=== PATIENT | female | born 2000 | race Caucasian/White ===

== ENCOUNTER 2022-06-17 17:06 | Emergency (ER) | payer OTHER ==
[~2022-06-17] VITALS: Ht 157.5 cm; Wt 63.6 kg
[2022-06-17 17:16] VITALS: TEMP 98.1
[2022-06-17 18:04] LABS: BASO # 0.1 K/mm3 (0.0-0.2); BASO % 0.6 % (0.0-2.0); EOS # 0.1 K/mm3 (0.0-0.7); EOS % 1.2 % (0.0-4.0); GRAN # 5.7 K/mm3 (1.4-6.5); GRAN % 63.9 % (42.2-75.2); HEMATOCRIT 40.2 % (37.0-47.0); HEMOGLOBIN 14.1 g/dl (12.5-16.0); LYMPH # 2.6 K/mm3 (1.2-3.4); LYMPH % 28.8 % (20.0-51.0); MEAN CELL VOLUME 87 fl (80.0-100.0); MEAN CORPUSCULAR HEMOGLOBIN 31 pg (27-31); MEAN CORPUSCULAR HGB CONC 35 g/dl (33.0-37.0); MEAN PLATELET VOLUME 9.9 fl (7.4-10.4); MONO # 0.5 K/mm3 (0.1-0.6); MONO % 5.3 % (1.7-9.3); PLATELET COUNT 227 K/mm3 (130-400); REDCELL DISTRIBUTION WIDTH-CV 12.8 % (11.5-14.5)
[2022-06-17 18:08] LABS: COLLECTION METHOD CLEAN CATCH
[2022-06-17 18:17] LABS: ALBUMIN 4.6 gm/dL (3.5-5.0); CALCIUM 9.8 mg/dL (8.4-10.2); CREATININE, serum 0.73 mg/dL (0.57-1.11); POTASSIUM 3.9 mmol/L (3.5-4.5); TOTAL PROTEIN 7.7 gm/dL (6.2-8.1)
[2022-06-17 18:21] LABS: MUCOUS Present (NOT PRESENT); SQUAMOUS EPITHELIAL 0-2 /hpf (0-10); URINE BACTERIA None Seen /hpf (NONE SEEN); URINE RBC 0-2 /hpf (0-2)
[2022-06-17 18:22] LABS: PH 5.5 (5.0-8.5); URINE APPEARANCE Clear (CLEAR/HAZY); URINE BLOOD TRACE-LYSED (NEGATIVE); URINE COLOR Yellow (YELLOW); URINE GLUCOSE Negative (NEGATIVE); URINE KETONE Negative (NEGATIVE); URINE NITRATE Negative (NEGATIVE); URINE PROTEIN(semi-quant) Negative (NEGATIVE); URINE UROBILINOGEN 0.2 E.U/dL (0.2-1.0)
[2022-06-17] MEDS ORDERED: ZOFRAN ODT4 MG PO (18:29)
[2022-06-17 18:48] VITALS: BP 112/72; PULSE 76
== END 2022-06-17 18:49 | disposition home or self-care (01) ==
LOC: COL.ER 17:06
PROVIDERS: Nurse Practitioner Primary Care
DX: O21.9 Vomiting of pregnancy, unspecified (principal); Z28.310 Unvaccinated for COVID-19; Z3A.00 Weeks of gestation of pregnancy not specified
CPT/HCPCS: J2405; J7030

== ENCOUNTER 2022-11-21 18:23 | Outpatient (CLI) | payer OTHER ==
[~2022-11-21] VITALS: Ht 157.5 cm; Wt 72.7 kg
[~2022-11-21 18:23] MED LIST: CEPHALEXIN500 M1 PO; NATURE'S BLEND100 M2 PO; ZOFRAN ODT4 MG PO
--- NOTE | 2022-11-21 18:30 | NUR ---
183- PT PRESENTS TO LDR COMPLAINING OF BACK PAIN AND POSSIBLY LEAKING SOME FLUID, AMBULATORY TO ROOM LR6, CHANGED INTO GOWN. 183- EFM X2 APPLIED. PT STATES SHE HAS BEEN HAVING PAIN IN HER BACK ON HER RIGHT SIDE. RATES IT A 6 AND STATES IT IS SHARP. SAYS SHE HAS HAD SOME CONTRACTIONS WELL. PT STATES SHE FEELS LIKE SHE HAS BEEN "WET FOR THE LAST MONTH," BUT EVERY TIME IT IS CHECKED, IT ISN'T AMNIOTIC FLUID. SHE FEELS LIKE THERE IS NO WAY SHE COULD BE "PEEING HERSELF 02/05 LIKE THIS." REASSURED PT WE WOULD TEST FOR RUPTURE OF MEMBRANES. PT ALSO STATES SHE HAS HAD SOME SPOTTING ON AND OFF FOR HER WHOLE , BUT NOT CURRENTLY HAVING ANY. PT HAS PROVIDED A URINE SAMPLE ON ADMISSION. 184- AMNITRACE NEGATIVE WITH NO POOLING OF FLUID, ENTROITUS IS DRY ON EXAM. SVE BY THIS NURSE 0/0/-3 WITH NO POOLING OF FLUID OR BLEEDING NOTED. DISCUSSED THESE FINDINGS WITH PT AND QUESTIONS ANSWERED. 1848- DR CROWE CALLED CHARTED, ORDERS RECEIVED FOR LABOR CHECK, UA, TYLENOL, AND PO HYDRATION.
[2022-11-21 19:00] VITALS: BP 102/65; PULSE 82; TEMP 98
[2022-11-21 19:00] LABS: COLLECTION METHOD CLEAN CATCH
[2022-11-21] MEDS ORDERED: NATURAL IRON65 MG PO (19:13)
[2022-11-21] MEDS ORDERED: COLACE 100100 MG/CAP PO (19:14)
[2022-11-21] MEDS ORDERED: DAILY MULTIPLE1 T18 PO (19:16)
[2022-11-21 19:34] LABS: URINE APPEARANCE Clear (CLEAR/HAZY); URINE COLOR Yellow (YELLOW)
--- NOTE | 2022-11-21 19:35 | NUR ---
1934- NURSE TO BEDSIDE, MONTITORS ADJUSTED. 1936- PT UP TO BATHROOM. 1947- PT BACK ON MONITORS. 1949- SVE BY THIS NURSE, NO CHANGE 0/0/-3. DISCUSSED PLAN OF CARE FOR DISMISSAL AND UA RESULTS. PT QUESTIONS ANSWERED. 1999- PT OFF MONITORS FOR DISMISSAL. 2009- DISMISSAL INSTRUCTIONS GIVEN AND PT VERBALIZES UNDERSTANDING. PT SIGNS PAPERS. PT DISMISSED TO HOME ACCOMPANIED BY SPOUSE AND CHILD.
[2022-11-21 19:36] LABS: PH 6.5 (5.0-8.5); URINE BLOOD Negative (NEGATIVE); URINE GLUCOSE Negative (NEGATIVE); URINE KETONE Negative (NEGATIVE); URINE NITRATE Negative (NEGATIVE); URINE PROTEIN(semi-quant) Negative (NEGATIVE); URINE UROBILINOGEN 0.2 E.U/dL (0.2-1.0)
[2022-11-21 22:29] LABS: SQUAMOUS EPITHELIAL 0-2 /hpf (0-10); URINE BACTERIA None Seen /hpf (NONE SEEN); URINE RBC 0-2 /hpf (0-2)
== END 2022-11-21 20:10 | disposition home or self-care (01) ==
LOC: LDRO 18:23 → LDR 18:23 → LDRO 20:10
PROVIDERS: Obstetrics & Gynecology
DX: O42.913 Preterm premature rupture of membranes, unspecified as to length of time between rupture and onset of labor, third trimester (principal); O99.891 Other specified diseases and conditions complicating pregnancy; M54.9 Dorsalgia, unspecified; Z3A.29 29 weeks gestation of pregnancy
CPT/HCPCS: OP

== ENCOUNTER 2022-12-23 14:54 | Outpatient (CLI) | payer OTHER ==
[~2022-12-23] VITALS: Ht 157.5 cm; Wt 75.0 kg
[~2022-12-23 14:54] MED LIST changes: +COLACE 100100 MG/CAP PO; +DAILY MULTIPLE1 T18 PO; +NATURAL IRON65 MG PO
[2022-12-23] MEDS ORDERED: PRILOSEC 20MG20 MG PO (15:06)
[2022-12-23 15:30] VITALS: BP 113/66; PULSE 90; TEMP 98.8
[2022-12-23 15:57] VITALS: BP 99/54; PULSE 83
== END 2022-12-23 15:55 ==
LOC: LDRO 14:54
DX: Z34.90 Encounter for supervision of normal pregnancy, unspecified, unspecified trimester (principal); Z3A.00 Weeks of gestation of pregnancy not specified

== ENCOUNTER 2022-12-28 12:28 | Outpatient (CLI) | payer OTHER ==
[~2022-12-28] VITALS: Ht 157.5 cm; Wt 73.2 kg
[~2022-12-28 12:28] MED LIST changes: +PRILOSEC 20MG20 MG PO
--- NOTE | 2022-12-28 12:45 | NUR ---
1245 PT ARRIVED ON UNIT WITH COMPLAINT OF DIARRHEA AND PAIN IN SIDE. PT IS NOT HAVING CTX, NO LOF, AND POSITIVE MOVEMENT. PT WAS ABLE TO VOID IN SPECIMEN CUP BUT UNABLE TO PROVIDE STOOL SAMPLE. PT LYING IN BED COMFORTABLY, EFM TRACING CAT 1.
[2022-12-28 13:30] VITALS: BP 107/71; PULSE 94; TEMP 98.1
[2022-12-28 13:36] LABS: COLLECTION METHOD CLEAN CATCH
[2022-12-28 13:41] LABS: BASO % 0.3 % (0.0-2.0); EOS # 0.2 K/mm3 (0.0-0.7); EOS % 1.2 % (0.0-4.0); GRAN # 10.2 K/mm3 (1.4-6.5); GRAN % 79.5 % (42.2-75.2); HEMOGLOBIN 12.1 g/dl (12.5-16.0); LYMPH # 1.8 K/mm3 (1.2-3.4); LYMPH % 13.6 % (20.0-51.0); MEAN CELL VOLUME 88 fl (80.0-100.0); MEAN CORPUSCULAR HEMOGLOBIN 31 pg (27-31); MEAN CORPUSCULAR HGB CONC 35 g/dl (33.0-37.0); MEAN PLATELET VOLUME 10.5 fl (7.4-10.4); MONO # 0.6 K/mm3 (0.1-0.6); MONO % 4.6 % (1.7-9.3); PLATELET COUNT 198 K/mm3 (130-400); RED BLOOD COUNT 3.91 M/mm3 (4.10-5.30); REDCELL DISTRIBUTION WIDTH-CV 13.4 % (11.5-14.5)
[2022-12-28 13:45] LABS: HEMATOCRIT 34.5 % (37.0-47.0)
[2022-12-28 13:46] LABS: URINE APPEARANCE Clear (CLEAR/HAZY); URINE BLOOD Negative (NEGATIVE); URINE COLOR Yellow (YELLOW); URINE GLUCOSE Negative (NEGATIVE); URINE KETONE Negative (NEGATIVE); URINE NITRATE Negative (NEGATIVE); URINE PROTEIN(semi-quant) Negative (NEGATIVE); URINE UROBILINOGEN 0.2 E.U/dL (0.2-1.0)
[2022-12-28 13:47] LABS: MUCOUS Present (NOT PRESENT); SQUAMOUS EPITHELIAL 0-2 /hpf (0-10); URINE BACTERIA Rare /hpf (NONE SEEN); URINE RBC 0-2 /hpf (0-2); URINE WBC 0-2 /hpf (0-2)
[2022-12-28 14:00] VITALS: BP 104/62; PULSE 95; TEMP 98.1
[2022-12-28 14:04] LABS: ALBUMIN 3.3 gm/dL (3.5-5.0); BILIRUBIN,TOTAL 0.7 mg/dL (0.2-1.2); CALCIUM 8.8 mg/dL (8.4-10.2); CREATININE, serum 0.68 mg/dL (0.57-1.11); POTASSIUM 3.6 mmol/L (3.5-4.5); TOTAL PROTEIN 6.4 gm/dL (6.2-8.1)
[2022-12-28 14:30] VITALS: BP 110/66; PULSE 101
[2022-12-28 15:00] VITALS: BP 105/69; PULSE 90
== END 2022-12-28 15:05 | disposition home or self-care (01) ==
LOC: LDRO 12:28
PROVIDERS: Obstetrics & Gynecology
DX: O26.899 Other specified pregnancy related conditions, unspecified trimester (principal); R19.7 Diarrhea, unspecified; Z3A.00 Weeks of gestation of pregnancy not specified
CPT/HCPCS: J7120

== ENCOUNTER 2023-01-27 16:54 | Inpatient (IN) | payer OTHER ==
[2023-01-27] VITALS (20 sets, daily range): BP systolic 101–126; BP diastolic 55–74; PULSE 87–137; TEMP 98–99.1
[~2023-01-27] VITALS: Ht 157.5 cm; Wt 76.8 kg
[2023-01-27 18:04] LABS: BASO # 0.1 K/mm3 (0.0-0.2); BASO % 0.5 % (0.0-2.0); EOS # 0.1 K/mm3 (0.0-0.7); EOS % 0.4 % (0.0-4.0); GRAN # 16.7 K/mm3 (1.4-6.5); GRAN % 84.3 % (42.2-75.2); HEMATOCRIT 35.7 % (37.0-47.0); HEMOGLOBIN 12.2 g/dl (12.5-16.0); LYMPH # 1.8 K/mm3 (1.2-3.4); LYMPH % 9.2 % (20.0-51.0); MEAN CELL VOLUME 86 fl (80.0-100.0); MEAN CORPUSCULAR HEMOGLOBIN 30 pg (27-31); MEAN CORPUSCULAR HGB CONC 34 g/dl (33.0-37.0); MEAN PLATELET VOLUME 10.5 fl (7.4-10.4); PLATELET COUNT 224 K/mm3 (130-400); RED BLOOD COUNT 4.13 M/mm3 (4.10-5.30); REDCELL DISTRIBUTION WIDTH-CV 13.7 % (11.5-14.5)
[2023-01-27] MEDS ORDERED: PRENATAL TABLET PO (18:40)
--- NOTE | 2023-01-27 19:36 | NUR ---
PATIENT CONTRACTION Q 5 MIN APART VERY TEARFUL. 1824 ANEST. HERE FOR EPIDURAL. SITTING UP ON EDGE OF BED.
[2023-01-28] VITALS (9 sets, daily range): BP systolic 90–116; BP diastolic 53–65; PULSE 66–107; TEMP 97.6–98.6
--- NOTE | 2023-01-28 00:32 | NUR ---
PATIENT VERY UNCOMFORTABLE. DOES NOT WANT TO MOVE TO TURN. ANEST IN TO DOSE.
--- NOTE | 2023-01-28 00:36 | NUR ---
DR CROWE IN REQUEST WE START PIT AT 2 MU TO GET CONTRACTIONS STRONGER.
--- NOTE | 2023-01-28 01:22 | NUR ---
PATIENT VERY UNCOMFORTABLE REFUSES TO TURN SIDE TO SIDE. ANEST IN TO DOSE
--- NOTE | 2023-01-28 01:33 | NUR ---
PATIENT TURNED SIDE TO SIDE WHEN POSSIBLE. PATIENT TEARFUL REFUSES TO TURN AT TIMES.
--- NOTE | 2023-01-28 01:47 | NUR ---
ANEST IN TO DOSE FOR COMFORT. PATIENT BREATHING BETTER AFTER DOSE. C/O BURNING ALL OVER.
--- NOTE | 2023-01-28 01:52 | NUR ---
PATIENT PUSHING FAIR. PUSHES WITH INSTRUCTIONS. STATES "i CAN'T DO THIS ENCOURAGED WITH PUSHING.
--- NOTE | 2023-01-28 01:56 | NUR ---
2323 OF MALE OVER INTACT PERINIUM. BABY PLACED ON MOTHERS ABD. PLACENTA [id number].
--- NOTE | 2023-01-28 01:59 | NUR ---
PATIENT COMPLETE INSTRUCTED ON PUSHING. PUSHES WELL FOR FIRST 3 PUSHES THEN STATES I DON'TWANT TO DO THIS. CONTINUES TO PUSH
--- NOTE | 2023-01-28 03:12 | NUR ---
ePIDURAL CATH REMOVED FROM PT BACK PER REQUEST OF PT. BLUE TIP INTACT. SITE WITHOUT REDNESS OR SWELLING. NO DRAINAGE NOTED. BANDAID PLACED. PT TOLERATED WELL.
--- NOTE | 2023-01-28 03:16 | NUR ---
HERNANDEZ CATH #16 PLACED PER [facility] WITH PIMK TINGED URINE OUT. PATIENT TOLERATED WELL.
--- NOTE | 2023-01-28 03:20 | NUR ---
2206 HERNANDEZ CATH REMOVED WITH 80CC OF PINK TINGED URINE OUT.
--- NOTE | 2023-01-28 03:24 | NUR ---
TYLENOL 1000MG P.O. PER PT REQUEST FOR HEADACH. LUNCH GIVEN PER REQUEST.
--- NOTE | 2023-01-28 03:36 | NUR ---
PATIENT ABLE TO MOVE HER LEGS. UP TO BATHROOM PER NORRIS STEADY. VOIDS 1500 YELLOW URINE OUT. ALEJA CARE DONE. PT. TOLERATED WELL. PATIENT MOVED TO ROOM 216 PER NORRIS STEADY. DENIES DIZZINESS OR DYSPNEA. ORIENTE TO ROOM. ALL PERSONAL BELONGINGS TRANSFERED TO ROOM.
--- NOTE | 2023-01-28 04:19 | NUR ---
PATIENT UP TO BATHROOM. VOIDS 650CC OF BLOOD TINGED URINE. ALEJA CARE DONE. PT TOLERATED WELL.
--- NOTE | 2023-01-28 05:22 | NUR ---
PATIENT UP TO BATHROOM VOIDS WITHOUT DIFF. ALEJA CARE DONE. INT DC.
[2023-01-28 05:35] LABS: HEMOGLOBIN 11.3 g/dl (12.5-16.0)
[2023-01-28 05:48] LABS: HEMATOCRIT 34.4 % (37.0-47.0)
--- NOTE | 2023-01-28 16:54 | NUR ---
PATIENT STATED PAIN 8/10 WITH NO RELIEF FROM TYLENOL OR MOTRIN. REPORTS PAIN ABDOMINAL CRAMPING. STATES BLEEDING IS "FINE" AT THIS TIME.
[2023-01-29 07:10] VITALS: BP 98/65; PULSE 60; TEMP 97.5
[2023-01-29] MEDS ORDERED: PERCOCET 325 MG1 TA2 PO (09:08)
[2023-01-29] MEDS ORDERED: IBU600 MG PO (09:08)
--- NOTE | 2023-01-29 11:07 | NUR ---
Initial visit; Parents were on their way out when Mobile [employer] saw them and offered congratulations and God's blessings for the of their son, an addition to their family with a little girl in the stroller.
== END 2023-01-29 10:20 | disposition home or self-care (01) | DRG 807 ==
LOC: LDRO 16:54 → OB 17:00 → LDR 17:00 → OB 01-28 08:20
PROVIDERS: Obstetrics & Gynecology; ADMIT Obstetrics & Gynecology
PROC: 10E0XZZ Delivery of Products of Conception, External Approach (ICD-10-PCS; principal; 2023-01-27)
DX: O99.344 Other mental disorders complicating childbirth (principal); Z37.0 Single live birth; F41.9 Anxiety disorder, unspecified; F32.A Depression, unspecified; Z3A.38 38 weeks gestation of pregnancy; O99.824 Streptococcus B carrier state complicating childbirth
CPT/HCPCS: J0690; J2795; J7120